=== PATIENT | female | born 1960 | race African-American/Black ===

== ENCOUNTER 2021-05-23 11:43 | Emergency (ER) | payer OTHER ==
[~2021-05-23] VITALS: Ht 165.1 cm; Wt 65.4 kg
--- NOTE | 2021-05-23 13:38 | RAD ---
XR CHEST 1V CLINICAL INDICATIONS: Reason: cough, shortness of breath COMPARISON: None available Findings: Bilateral lower lung zone infiltrates are seen worse on the right side. No pleural effusion or pneumothorax is evident. The heart size, pulmonary vasculature, mediastinum and both lata are unr emarkable. Bone island of the proximal right humerus in the greater tubercle area is evident. IMPRESSION: Bilateral lung infiltrates. Electronically signed by: Shankar Jasso MD (05/23/2021 1:36 PM) [id number]
[2021-05-23 13:42] LABS: BASO % 1 % (0-3); EOS # 0.1 x10^3/uL (0.0-0.7); EOS % 1 % (0-3); HEMATOCRIT 40.1 % (36.0-47.0); HEMOGLOBIN 13.8 g/dL (12.0-15.5); LYMPH # 1.4 x10^3/uL (1.0-4.8); LYMPH % 24 % (24-48); MEAN CORPUSCULAR HEMOGLOBIN 31 pg (25-35); MEAN CORPUSCULAR HGB CONC 35 g/dL (31-37); MEAN CORPUSCULAR VOLUME 89 fL (79-100); MONO # 0.4 x10^3/uL (0.0-1.1); MONO % 8 % (0-9); NEUT # 3.8 x10^3/uL (1.8-7.7); NEUT % 66 % (31-73); PLATELET COUNT 334 x10^3/uL (140-400); RED BLOOD COUNT 4.52 x10^6/uL (3.50-5.40); RED CELL DISTRIBUTION WIDTH 13.2 % (11.5-14.5); WHITE BLOOD COUNT 5.8 x10^3/uL (4.0-11.0)
[2021-05-23] MEDS ORDERED: cefTRIAXone IV Push 1 GM VIAL. IVP ONE (13:45)
[2021-05-23 13:54] LABS: CALCIUM 8.7 mg/dL (8.5-10.1); CREATININE 0.7 mg/dL (0.6-1.0); GFR 85.9; POTASSIUM 3.6 mmol/L (3.5-5.1)
--- NOTE | 2021-05-23 13:58 | EKG ---
[facility] [address] [place] [address] Test Date: 2021-05-23 Test Time: 13:19:01 Pat Name: LAVERNE GILLIAM Department: Room: Gender: F Car Cleaner: : 1960 Requested By: ARIELLE LUNDY Order Number: [id number] Reading MD: Measurements Intervals [place] Rate: 104 P: 32 WA: 154 QRS: 22 QRSD: 72 T: 49 QT: 342 QTc: 450 Interpretive Statements SINUS TACHYCARDIA LEFT ATRIAL ABNORMALITY QRS(T) CONTOUR ABNORMALITY CONSIDER ANTERIOR INFARCT ABNORMAL ECG RI6.01 No previous ECG available for comparison
[2021-05-23 14:00] LABS: ALBUMIN 2.8 g/dL (3.4-5.0); ALBUMIN/GLOBULIN RATIO 0.5 (1.0-1.7); TOTAL BILIRUBIN 0.4 mg/dL (0.2-1.0); TOTAL PROTEIN 7.9 g/dL (6.4-8.2)
--- NOTE | 2021-05-23 14:06 | HP ---
ADMIT DATE: 05/23/2021 CHIEF COMPLAINT: Shortness of breath and cough. HISTORY OF PRESENT ILLNESS: The patient is a pleasant 60-year-old female who is disabled. She states she has 4 kids at home. She has been COVID positive for a week or 2 she states. Today, her symptoms are worse. She got short of breath with coughing. She came to the ER for evaluation. I discussed the case with ER physician. We are remaining the patient for COVID-19 protocol. PAST MEDICAL HISTORY: COVID-19, overweight. ALLERGIES: None. FAMILY HISTORY: Diabetes. SOCIAL HISTORY: She does not drink, smoke or take drugs. She states she is disabled, has 4 kids at home. MEDICATIONS: Reviewed, please refer to the MRAD. REVIEW OF SYSTEMS: PULMONARY: She complains of shortness of breath and cough. GENERAL: No history of weight change, weakness or fevers. SKIN: No bruising, hair changes or rashes. EYES: No blurred, double or loss of vision. NOSE AND THROAT: No history of nosebleeds, hoarseness or sore throat. HEART: No history of palpitations, chest pain or shortness of breath on exertion. GASTROINTESTINAL: Denies changes in appetite, nausea, vomiting, diarrhea or constipation. GENITOURINARY: No history of frequency, urgency, hesitancy or nocturia. NEUROLOGIC: Denies history of numbness, tingling, tremor or weakness. PSYCHIATRIC: No history of panic, anxiety or depression. ENDOCRINE: No history of heat or cold intolerance, polyuria or polydipsia. EXTREMITIES: Denies muscle weakness, joint pain, pain on walking or stiffness. PHYSICAL EXAMINATION: VITALS: Within normal limits and are stable. GENERAL: No apparent distress. Alert and oriented. HENT: Normocephalic, atraumatic, external auditory canals are patent. EYES: Extraocular muscles are intact, pupils are equally round and reactive to light and accommodation. MUSCULOSKELETAL: Well developed, well nourished, good range of motion. ENDOCRINE: No thyromegaly was palpated. LYMPHATICS: No cervical chain or axillary nodes were noted. HEMATOPOIETIC: No bruising. NECK: Supple, no JVD, no thyromegaly was noted. PULMONARY: She has bibasilar crackles. HEART: RRR, S1, S2 present. Peripheral pulses intact, no obvious murmurs were noted. ABDOMEN: Soft, nontender. Positive bowel sounds no organomegaly, normal bowel sounds. EXTREMITIES: Without any cyanosis, clubbing, or edema. Pedal pulses intact, Homans sign is negative. NEUROLOGIC: Normal speech, normal tone. A and O x 3, moves all extremities, no obvious focal deficits. PSYCHIATRIC: Normal affect, normal mood. Stable. SKIN: No ulcerations or rashes, good skin turgor, no jaundice. VASCULAR: Good capillary refill, neurovascular bundle appears to be intact. ASSESSMENT AND PLAN: COVID-19, respiratory failure. The patient will be admitted. We will start COVID protocol including antibiotics, remdesivir, steroids, vitamins with minerals, beta agonist, oxygen, codeine cough syrup and aspirin. PROGNOSIS: Guarded. NKArnulfo/[facility]: ROB/jamal TID: [id number]
[2021-05-23 15:05] VITALS: BP 135/64
[2021-05-23] MEDS ORDERED: AMOX1TAB61 PO (15:20)
[2021-05-23] MEDS ORDERED: PRED50TA PO (15:20)
--- NOTE | 2021-05-23 15:20 | PHYS DOC ---
Past Medical History Past Surgical History: No Surgical History Smoking Status: Never Smoker Alcohol Use: None General Adult EDM: Chief Complaint: SHORTNESS OF BREATH HPI: HPI: Patient is a 60 year old female presented to the ED today complaining of shortness of breath worse on exertion. Patient states she was diagnosed with COVID-19 on May 10, 2021. She states she had a cough with shortness of breath. She states the shortness of breath is still lingering on. Patient states symptoms are worse on exertion. Patient denies any chest pain. Denies any fever. She states the cough has improved. Review of Systems: Review of Systems: Constitutional: Denies fever or chills. [] Eyes: Denies change in visual acuity. [] HENT: Denies nasal congestion or sore throat. [] Respiratory: Reports shortness of breath, cough Cardiovascular: Denies chest pain or edema. [] GI: Denies abdominal pain, nausea, vomiting, bloody stools or diarrhea. [] : Denies dysuria. [] Musculoskeletal: Denies back pain or joint pain. [] Integument: Denies rash. [] Neurologic: Denies headache, focal weakness or sensory changes. [] Psychiatric: Denies depression or anxiety. [] Heart Score: C/O Chest Pain: N/A Risk Factors: Risk Factors: DM, Current or recent (<one month) smoker, HTN, HLP, family history of CAD, obesity. Risk Scores: Score 0 - 3: 2.5% MACE over next 6 weeks - Discharge Home Score 4 - 6: 20.3% MACE over next 6 weeks - Admit for Clinical Observation Score 7 - 10: 72.7% MACE over next 6 weeks - Early Invasive Strategies Current Medications: Current Medications Medications (Trade) Dose Ordered Sig/Nico Start Time Stop Time Status Last Admin Dose Admin Ceftriaxone Sodium (Rocephin) 1 gm 1X ONCE 05/23/21 13:45 05/23/21 13:48 DC 05/23/21 14:45 1 GM Allergies: Allergies: Allergies Coded Allergies Type Severity Reaction Last Updated Verified No Known Drug Allergies 05/23/21 No Physical Exam: PE: Constitutional: Well developed, well nourished, no acute distress, non-toxic appearance. [] HENT: Normocephalic, atraumatic, bilateral external ears normal, oropharynx moist, no oral exudates, nose normal. [] Eyes: PERRLA, EOMI, conjunctiva normal, no discharge. [] Neck: Normal range of motion, no tenderness, supple, no stridor. [] Cardiovascular:Heart rate regular rhythm, no murmur [] Lungs & Thorax: Diminished posterior breath sounds Abdomen: Bowel sounds normal, soft, no tenderness, no masses, no pulsatile masses. [] Skin: Warm, dry, no erythema, no rash. [] Back: No tenderness, no CVA tenderness. [] Extremities: No tenderness, no cyanosis, no clubbing, ROM intact, no edema. [] Neurologic: Alert and oriented X 3, normal motor function, normal sensory function, no focal deficits noted. [] Psychologic: Affect normal, judgement normal, mood normal. [] Current Patient Data: Labs: Laboratory Tests Test 05/23/21 13:25 White Blood Count 5.8 x10^3/uL (4.0-11.0) Red Blood Count 4.52 x10^6/uL (3.50-5.40) Hemoglobin 13.8 g/dL (12.0-15.5) Hematocrit 40.1 % (36.0-47.0) Mean Corpuscular Volume 89 fL (79-100) Mean Corpuscular Hemoglobin 31 pg (25-35) Mean Corpuscular Hemoglobin Concent 35 g/dL (31-37) Red Cell Distribution Width 13.2 % (11.5-14.5) Platelet Count 334 x10^3/uL (140-400) Neutrophils (%) (Auto) 66 % (31-73) Lymphocytes (%) (Auto) 24 % (24-48) Monocytes (%) (Auto) 8 % (0-9) Eosinophils (%) (Auto) 1 % (0-3) Basophils (%) (Auto) 1 % (0-3) Neutrophils # (Auto) 3.8 x10^3/uL (1.8-7.7) Lymphocytes # (Auto) 1.4 x10^3/uL (1.0-4.8) Monocytes # (Auto) 0.4 x10^3/uL (0.0-1.1) Eosinophils # (Auto) 0.1 x10^3/uL (0.0-0.7) Basophils # (Auto) 0.0 x10^3/uL (0.0-0.2) Sodium Level 143 mmol/L (136-145) Potassium Level 3.6 mmol/L (3.5-5.1) Chloride Level 104 mmol/L (98-107) Carbon Dioxide Level 29 mmol/L (21-32) Anion Gap 10 (6-14) Blood Urea Nitrogen 9 mg/dL (7-20) Creatinine 0.7 mg/dL (0.6-1.0) Estimated GFR (Cockcroft-Gault) 85.9 BUN/Creatinine Ratio 13 (6-20) Glucose Level 99 mg/dL (70-99) Lactic Acid Level 1.0 mmol/L (0.4-2.0) Calcium Level 8.7 mg/dL (8.5-10.1) Total Bilirubin 0.4 mg/dL (0.2-1.0) Aspartate Amino Transferase (AST) 29 U/L (15-37) Alanine Aminotransferase (ALT) 21 U/L (14-59) Alkaline Phosphatase 69 U/L (46-116) Total Protein 7.9 g/dL (6.4-8.2) Albumin 2.8 g/dL (3.4-5.0) L Albumin/Globulin Ratio 0.5 (1.0-1.7) L Laboratory Tests 05/23/21 13:25 Laboratory Tests 05/23/21 13:25 Vital Signs: Vital Signs Date Time Temp Pulse Resp B/P (MAP) Pulse Ox O2 Delivery O2 Flow Rate FiO2 05/23/21 13:05 86 25 137/65 (89) 96 Room Air 05/23/21 12:30 98.6 98.6 EKG: EKG: [] Radiology/Procedures: Radiology/Procedures: []PROCEDURE: PORTABLE CHEST 1V XR CHEST 1V CLINICAL INDICATIONS: Reason: cough, shortness of breath COMPARISON: None available Findings: Bilateral lower lung zone infiltrates are seen worse on the right side. No pleural effusion or pneumothorax is evident. The heart size, pulmonary vasculature, mediastinum and both lata are unremarkable. Bone island of the proximal right humerus in the greater tubercle area is evident. IMPRESSION: Bilateral lung infiltrates. Electronically signed by: Shankar Jasso MD (05/23/2021 1:36 PM) [id number] DICTATED and SIGNED BY: SHANKAR JASSO MD DATE: 05/23/21 [id number] 0 Course & Med Decision Making: Course & Med Decision Making Pertinent Labs and Imaging studies reviewed. (See chart for details) This is a 60-year-old female patient presenting to the ED today complaining of shortness of breath since she was diagnosed with COVID-19 on May 10, 2021. Patient states her cough has improved. Patient is afebrile, O2 sats 96% on room air CBC with a normal WBC, lactic is normal, CMP with no acute findings. Chest x- ray noted for bilateral lower lobe infiltrates. Patient was given Rocephin in the ED IV. Discharged on Augmentin, prednisone. Follow-up with primary care doctor in the next 1 week. Tatiana Disclaimer: Dragarsh Disclaimer: This electronic medical record was generated, in whole or in part, using a voice recognition dictation system. Departure Departure Impression: Primary Impression: Bilateral pneumonia Qualified Codes: J18.9 - Pneumonia, unspecified organism Additional Impression: Shortness of breath Disposition: 01 HOME / SELF CARE / HOMELESS Condition: STABLE Referrals: UNKNOWN PCP NAME (PCP) Follow-up with your primary care doctor in the course of this week Patient Instructions: Pneumonia, Adult, [id number], Shortness of Breath, [id number] Additional Instructions: You were evaluated in the emergency room. You have pneumonia to your lungs. Take the prescribed antibiotics until completed. Follow-up with your doctor in the course of this week. Scripts Prednisone (PREDNISONE) 50 Mg Tablet 1 TAB PO DAILY, #5 TAB Prov: ARIELLE LUNDY [employer] 05/23/21 Amoxicillin/Potassium Clav (AUGMENTIN 875-125 TABLET) 1 Each Tablet 1 TAB PO BID for 10 Days, #20 TAB 0 Refills Prov: ARIELLE LUNDY [employer] 05/23/21 ARIELLE LUNDY [employer] May 23, 2021 15:20
== END 2021-05-23 15:54 | disposition home or self-care (01) ==
LOC: ER 11:43
DX: J18.9 Pneumonia, unspecified organism (principal)
CPT/HCPCS: 36415; 71045; 80053; 83605; 84145; 85025; 87040; 93005; 96374; 99285; J0696